=== PATIENT | male | born 1975 | race Caucasian/White ===

== ENCOUNTER 2018-11-27 08:55 | Emergency (ER) | payer BC, OTHER ==
[2018-11-27] MEDS ORDERED: fentaNYL 100 MCG/2 ML SDV IVPUSH ONE ×3 (09:14→10:20)
--- NOTE | 2018-11-27 09:29 | EDM.PDOC ---
ED HPI GENERAL MEDICAL PROBLEM - General Chief Complaint: Lower Extremity Injury/Pain Stated Complaint: Left hip pain Time Seen by Provider: 11/27/18 09:05 Source of Information: Reports: Patient History Limitations: Reports: No Limitations - History of Present Illness INITIAL COMMENTS - FREE TEXT/NARRATIVE: 43 YO WM presents with left hip pain after fall off step ladder. Pt reports feeling a "pop" and he fell to the ground. Pt complaining of severe pain after fall. Pt unable to ambulate. EMS arrived and gave dilaudid 1mg IV. Pt denies head/neck injury. Pt denies loss of consciousness. Pt denies chest pain, shortness of breath or vomiting. Onset: Today Location: Reports: Lower Extremity, Left Quality: Reports: Ache Severity: Severe Improves with: Reports: Rest Worsens with: Reports: Movement Associated Symptoms: Reports: No Other Symptoms Review of Systems - Review of Systems Review Of Systems: See Below Constitutional: Reports: No Symptoms Eyes: Reports: No Symptoms Ears: Reports: No Symptoms Nose: Reports: No Symptoms Mouth/Throat: Reports: No Symptoms Respiratory: Reports: No Symptoms Cardiovascular: Reports: No Symptoms GI/Abdominal: Reports: No Symptoms Genitourinary: Reports: No Symptoms Musculoskeletal: Reports: Leg Pain Skin: Reports: No Symptoms Neurological: Reports: No Symptoms Psychiatric: Reports: No Symptoms ED EXAM, GENERAL - Physical Exam Exam: See Below Exam Limited By: No Limitations General Appearance: Alert, WD/WN, No Apparent Distress Eye Exam: Bilateral Eye: PERRL Nose: Normal Inspection, Normal Mucosa, No Blood Throat/Mouth: Normal Inspection, Normal Lips, Normal Teeth, Normal Gums, Normal Oropharynx, Normal Voice, No Airway Compromise Head: Atraumatic, Normocephalic Neck: Normal Inspection, Supple, Non-Tender, Full Range of Motion Respiratory/Chest: No Respiratory Distress, Lungs Clear, Normal Breath Sounds, No Accessory Muscle Use, Chest Non-Tender Cardiovascular: Normal Peripheral Pulses, Regular Rate, Rhythm, No Edema, No Gallop, No JVD, No Murmur, No Rub GI/Abdominal: Normal Bowel Sounds, Soft, Non-Tender, No Organomegaly, No Distention, No Abnormal Bruit, No Mass Back Exam: Normal Inspection, Full Range of Motion, NT Extremities: Normal Capillary Refill, Other (left hip external rotation. good distal pulses) Neurological: Alert, Oriented, CN II-XII Intact, Normal Cognition, Normal Gait, Normal Reflexes, No Motor/Sensory Deficits Psychiatric: Normal Affect, Normal Mood Skin Exam: Warm, Dry, Intact, Normal Color, No Rash Lymphatic: No Adenopathy Course - Orders/Labs/Meds Orders: Active Orders 24 hr Category Date Time Status Hip Min 2V or 3V w Pelvis Lt [CR] Stat Exams 11/27/18 09:33 Ordered Sodium Chloride 0.9% @ 150 MLS/HR (1000ml) Med 11/27/18 09:45 Ordered Sodium Chloride 0.9% [Normal Saline] 1,000 ml IV ASDIRECTED Medication Orders Sodium Chloride (Normal Saline) 1,000 mls @ 150 mls/hr IV ASDIRECTED ALYSSA Meds: Medications Generic Name Dose Route Start Last Admin Trade Name Freq PRN Reason Stop Dose Admin Sodium Chloride 1,000 mls @ 150 mls/hr 11/27/18 09:45 Normal Saline IV ASDIRECTED ALYSSA Discontinued Medications Generic Name Dose Route Start Last Admin Trade Name Freq PRN Reason Stop Dose Admin Fentanyl 50 mcg 11/27/18 09:14 Sublimaze IVPUSH 11/27/18 09:15 ONETIME ONE Fentanyl 50 mcg 11/27/18 09:35 Sublimaze IVPUSH 11/27/18 09:36 ONETIME ONE Departure - Departure Time of Disposition: 09:44 Disposition: DC/Tfer to Acute Hospital 02 Condition: Serious Clinical Impression: Intertrochanteric fracture, hip - Discharge Information Referrals: PCP,Not In Area [Primary Care Provider] - Forms: ED Department Discharge, Interfacility Transfer KAVIN - My Orders Last 24 Hours: My Active Orders 11/27/18 09:33 Hip Min 2V or 3V w Pelvis Lt [CR] Stat 11/27/18 09:45 Sodium Chloride 0.9% @ 150 MLS/HR (1000ml) Sodium Chloride 0.9% [Normal Saline] 1,000 ml IV ASDIRECTED - Assessment/Plan Last 24 Hours: My Active Orders 11/27/18 09:33 Hip Min 2V or 3V w Pelvis Lt [CR] Stat 11/27/18 09:45 Sodium Chloride 0.9% @ 150 MLS/HR (1000ml) Sodium Chloride 0.9% [Normal Saline] 1,000 ml IV ASDIRECTED Assessment:: 1. left spiral intratrochanteric fracture of hip Plan: 1. transfer to [facility]- Ortho- Dr Rogers 2. fentanyl 50mg iv PRN 3. NS@150cc/hr 4. supportive care
[2018-11-27] MEDS ORDERED: Sodium Chloride 0.9% 1,000 ML IV SCH (09:45)
[2018-11-27] MEDS ORDERED: fentaNYL 100 MCG/2 ML SDV ONE (10:19)
== END 2018-11-27 10:24 ==
LOC: KA.ED 08:55
DX: S72.142A Displaced intertrochanteric fracture of left femur, initial encounter for closed fracture (principal); W11.XXXA Fall on and from ladder, initial encounter
CPT/HCPCS: 96374; 96376; 99285-25; J3010; J7030